=== PATIENT | male | born 1975 | race Hispanic/Latino ===

== ENCOUNTER → 2017-01-20 | Day surgery (SDC) | payer OTHER ==
[~2017-01-20] VITALS: Ht 177.8 cm; Wt 62.6 kg
[~2017-01-20] MED LIST: FINASTERIDE5 M1 PO; FLOMAX0.4 M1 PO
--- NOTE | 2017-01-20 11:52 | Operative Report ---
Operative/Inv Procedure Report Surgery Date: 01/20/17 Name of Procedure: transurethral resection of the prostate Pre-Operative Diagnosis: obtructing BPH Post-Operative Diagnosis: same Estimated Blood Loss: 50ml to 100ml Surgeon/Glue Bone Crusher: INÉS EAGLE MD Anesthesia: laryngeal mask airway Drains: 22fr 3 way hematuria catheter Specimens: prostate chips Complications: none Condition: stable Operative Indication: obstructing BPH Operative/Procedure Note Note: This is an operative dictation on patient Man Rodrigues. He was seen in the office for benign prostatic hypertrophy that was obstructive in nature. He had been on conservative management with the medication with no improvement. he was identified in [facility]. He and his were given the risks benefits and alternatives of transurethral resection of the prostate and all questions were answered. Patient was taken to the operating room placed on the operating table in supine position. Timeout was performed. IV antibiotics were infused and LMA anesthesia was given. Patient was placed in the dorsolithotomy position and prepped and draped in the standard sterile fashion. Cystoscopy was performed and the bladder was globally inspected examined. There is no bladder lesions masses or tumors and ureteral orifices were easily identified. There was mild trabeculation to grade 1. The scope was then used to evaluate the prostate which was proximally 4 cm in size with obstructing lateral lobes with no median lobe and a high tight bladder neck. The scope was changed to a bipolar resectoscope. The resection was carried out using energy of 4-6 starting from the left lateral lobe at 3:00 and sequentially clockwise in nature taking care not to go beyond the verumontanum. Point coagulation was performed throughout the procedure as the vessels were unroofed. Once the resection was carried, out the view from the verumontanum was wide-open and bladder neck was also less constrictive. Bladder was examined and the ureteral orifices were not injured. The roller ball was used to ensure adequate hemostasis. The prostate chips were then removed with the Bashir evacuator. A 22 Hebrew hematuria 3-way catheter was placed and CBI started. However the urine output was layer. The prostate chips were sent to pathology. Patient tolerated the procedure well. Findings: no injury to ureteral orifices. resection not carried beyond the verumontanum. Discharge Disposition: PACU
== END ==
LOC: STS 02:02
DX: N40.1 Benign prostatic hyperplasia with lower urinary tract symptoms (principal); R39.11 Hesitancy of micturition; R39.14 Feeling of incomplete bladder emptying; R35.0 Frequency of micturition; F17.200 Nicotine dependence, unspecified, uncomplicated; Z87.442 Personal history of urinary calculi; N32.89 Other specified disorders of bladder
CPT/HCPCS: 88305; J0131; J0744; J2250; J2405; J7060